=== PATIENT | male | born 1960 | race African-American/Black ===

== ENCOUNTER 2018-12-04 17:43 | Emergency (ER) | payer OTHER ==
--- NOTE | 2018-12-04 18:22 | ER Document Report ---
ED Medical Screen (RME) - General Chief Complaint: High Blood Pressure Stated Complaint: BLOOD PRESSURE ISSUE Time Seen by Provider: 12/04/18 18:11 Mode of Arrival: Ambulatory Information source: Patient Notes: Patient presents emergency department withc/o high blood pressure. Reports they were at [facility] and took his blood pressure and it was high. They went to [facility] it was high. So they came to the emergency department. He denies chest pain/ shortness of breath. He denies headache. He denies all symptoms such as fever vomiting diarrhea. He denies difficulty voiding. Reports he feels fine. Does not smoke, does not have a history of anything denies cardiac disease denies high blood pressure. Reports they are stressed because they are moving to [place]. We spoke to patient for quite a while about high blood pressure. Risk of high blood pressure. I have greeted and performed a rapid initial assessment of this patient. A comprehensive ED assessment and evaluation of the patient, analysis of test results and completion of the medical decision making process will be conducted by additional ED providers. Dictation of this chart was performed using voice recognition software; therefore, there may be some unintended grammatical errors. - Related Data Allergies/Adverse Reactions: No Known Allergies Allergy (Verified 12/04/18 17:44) Physical Exam - Vital signs Vitals: Temp Pulse Resp BP Pulse Ox 98.7 F 77 23 H 169/90 H 94 12/04/18 17:48 12/04/18 17:48 12/04/18 17:48 12/04/18 17:48 12/04/18 17:48 Course - Vital Signs Vital signs: Temp Pulse Resp BP Pulse Ox 98.7 F 77 23 H 169/90 H 94 12/04/18 17:48 12/04/18 17:48 12/04/18 17:48 12/04/18 17:48 12/04/18 17:48
[2018-12-04 18:46] LABS: ABSOLUTE EOSINOPHILS # (AUTO) 0.1 10^3/uL (0.0-0.6); ABSOLUTE LYMPHOCYTES (AUTO) 1.4 10^3/uL (0.5-4.7); ABSOLUTE MONOCYTES (AUTO) 0.7 10^3/uL (0.1-1.4); ABSOLUTE NEUT (AUTO) 1.9 10^3/uL (1.7-8.2); BASOPHILS % (AUTO) 0.6 % (0-2); EOSINOPHILS % (AUTO) 1.6 % (0-6); HEMATOCRIT 44.1 % (37.9-51.0); HEMOGLOBIN 14.8 g/dL (13.5-17.0); LYMPHOCYTES % (AUTO) 34.9 % (13-45); MEAN CORPUSCULAR HEMOGLOBIN 29.2 pg (27.0-33.4); MEAN CORPUSCULAR HGB CONC 33.5 g/dL (32.0-36.0); MEAN CORPUSCULAR VOLUME 87 fl (80-97); MONOCYTES % (AUTO) 16.5 % (3-13); PLATELET COUNT 181 10^3/uL (150-450); RED BLOOD COUNT 5.07 10^6/uL (4.35-5.55); RED CELL DISTRIBUTION WIDTH 14.4 % (11.5-14.0); SEGMENTED NEUTROPHILS % (AUTO) 46.4 % (42-78); TOTAL CELLS COUNTED % (AUTO) 100 %; WHITE BLOOD COUNT 4.1 10^3/uL (4.0-10.5)
[2018-12-04 18:49] LABS: APPEARANCE,URINE CLEAR; BILIRUBIN,URINE NEGATIVE (NEGATIVE); COLOR,URINE YELLOW; GLUCOSE, URINE NEGATIVE (NEGATIVE); KETONES,URINE NEGATIVE (NEGATIVE); LEUKOCYTE ESTERASE,URINE NEGATIVE (NEGATIVE); NITRITE,URINE NEGATIVE (NEGATIVE); PROTEIN,URINE NEGATIVE (NEGATIVE); URINE SPECIFIC GRAVITY 1.015; UROBILINOGEN,URINE NEGATIVE mg/dL (<2.0)
[2018-12-04 19:04] LABS: ALANINE AMINOTRANSFERASE 35 U/L (21-72); ALBUMIN 4.5 g/dL (3.5-5.0); ALKALINE PHOSPHATASE 78 U/L (38-126); ANION GAP 9 (5-19); ASPARTATE AMINO TRANSFERASE 25 U/L (17-59); BILIRUBIN,DIRECT 0.2 mg/dL (0.0-0.4); BILIRUBIN,TOTAL 0.5 mg/dL (0.2-1.3); BLOOD UREA NITROGEN 17 mg/dL (7-20); CALCIUM 9.6 mg/dL (8.4-10.2); CARBON DIOXIDE 29 mmol/L (22-30); CHLORIDE 104 mmol/L (98-107); GLUCOSE 101 mg/dL (75-110); POTASSIUM 4.6 mmol/L (3.6-5.0); SODIUM 141.8 mmol/L (137-145); TOTAL PROTEIN 8.1 g/dL (6.3-8.2)
--- NOTE | 2018-12-04 19:10 | ER Document Report ---
ED General - General Chief Complaint: High Blood Pressure Stated Complaint: BLOOD PRESSURE ISSUE Time Seen by Provider: 12/04/18 18:11 Mode of Arrival: Ambulatory Notes: Very pleasant 58-year-old male with no known medical problems presents to the emergency department with concern for high blood pressure. He was at [employer] and he incidentally decided to check his blood pressure and it was high. He then stopped at [facility] and decided to check it again and it was high there as well. He then decided to come to the emergency department. Denies any altered mental status, chest pain, shortness of breath, headache or neck stiffness, denies nausea, vomiting, diarrhea, abdominal pain, no problems with urination. He is completely asymptomatic. Patient is not a smoker. He does have a stressor that he will be moving to [place] here in the near future. TRAVEL OUTSIDE OF THE [place] IN LAST 30 DAYS: No - Related Data Allergies/Adverse Reactions: No Known Allergies Allergy (Verified 12/04/18 17:44) Past Medical History - General Information source: Patient - Social History Smoking Status: Never Smoker Chew tobacco use (# tins/day): No Frequency of alcohol use: None Drug Abuse: None Family History: None Patient has suicidal ideation: No Patient has homicidal ideation: No Renal/ Medical History: Denies: Hx Peritoneal Dialysis Review of Systems - Review of Systems Constitutional: No symptoms reported EENT: See HPI Cardiovascular: See HPI Respiratory: See HPI Gastrointestinal: See HPI Genitourinary: See HPI Male Genitourinary: No symptoms reported Musculoskeletal: No symptoms reported Skin: No symptoms reported Hematologic/Lymphatic: No symptoms reported Neurological/Psychological: See HPI Physical Exam - Vital signs Vitals: Temp Pulse Resp BP Pulse Ox 98.7 F 77 23 H 169/90 H 94 12/04/18 17:48 12/04/18 17:48 12/04/18 17:48 12/04/18 17:48 12/04/18 17:48 - Notes Notes: PHYSICAL EXAMINATION: Reviewed vital signs and charting by RN GENERAL: Well-appearing, well-nourished and in no acute distress. HEAD: Atraumatic, normocephalic. EYES: Pupils are 3 mm and equal/round/reactive to light, extraocular movements intact, sclera anicteric, conjunctiva are normal. ENT: Nares patent bilaterally, oropharynx clear without exudates or palatal petechia. Moist mucous membranes. No tonsil hypertrophy. NECK: Normal range of motion, supple without lymphadenopathy. LUNGS: Breath sounds present, equal, and clear to auscultation bilaterally. No wheezes, rales, or rhonchi. HEART: Regular rate and rhythm without murmurs, rubs, or gallops. 2+ peripheral pulses. Normal capillary refill. ABDOMEN: Soft, nontender, nondistended. Normoactive bowel sounds. No guarding, no rebound. No masses appreciated. BACK: Normal contour, no midline tenderness. No CVAT rectal exam deferred. EXTREMITIES: Normal range of motion, no pitting or edema. No cyanosis. NEUROLOGICAL: No focal neurological deficits. Cranial nerves III-XII grossly intact. Moves all extremities spontaneously and on command. PSYCH: Normal mood, normal affect. SKIN: Warm, dry, normal turgor, no rashes or lesions noted. Course - Re-evaluation Re-evalutation: 12/04/18 19:07 Overall well-appearing patient presents to the emergency department with asymptomatic hypertension. Labs were drawn in triage and CMP is still pending. I counseled the patient that we do not treat asymptomatic blood pressure here in the emergency department. I encouraged him to establish a new primary doctor as he states his previous . Patient understands and agrees with this plan. Once CMP results patient will be stable for discharge. 12/04/18 19:11 CMP and urinalysis have resulted. All lab is complete and within normal limits. No electrolyte derangements. Urinalysis negative for UTI, protein, or any other concerns. At this time patient has asymptomatic hypertension and is stable for discharge. - Vital Signs Vital signs: Temp Pulse Resp BP Pulse Ox 98.7 F 77 23 H 173/88 H 94 12/04/18 17:48 12/04/18 17:48 12/04/18 17:48 12/04/18 18:20 12/04/18 17:48 - Laboratory Result Diagrams: 12/04/18 18:20 12/04/18 18:20 Laboratory results interpreted by me: 12/04/18 12/04/18 18:20 18:20 RDW 14.4 H Monocytes % 16.5 H Est GFR (Non-Af Amer) 59 L Discharge - Discharge Clinical Impression: Asymptomatic hypertension Condition: Good Disposition: HOME, SELF-CARE Additional Instructions: You are seen in the emergency department this afternoon for high blood pressure. Because you are having no symptoms at all your lab work does not reflect any abnormalities there is nothing to be done here in the emergency department today. It is very important that you reestablish your primary care doctor to manage your blood pressure. If you develop severe headache, have dizziness or lightheadedness, crushing constant chest pain or acute shortness of breath, intractable nausea or vomiting, or you are unable to urinate please return to the emergency department for reevaluation. These are all signs of endorgan damage related to high blood pressure.
[2018-12-04 19:13] VITALS: BP 168/85
== END 2018-12-04 19:30 | disposition home or self-care (01) ==
LOC: ER 17:43
DX: I10 Essential (primary) hypertension (principal)
CPT/HCPCS: 36415; 80053; 81001; 85025; 99283